=== PATIENT | female | born 1960 | race Caucasian/White ===

== ENCOUNTER 2021-02-13 16:03 | Outpatient (REF) | payer MEDICAID, SELFPAY ==
[2021-02-13 13:28] LABS: ESR 12 mm/hr (0-30)
[2021-02-13 13:43] LABS: ALT 26 U/L (14-59); AST 16 U/L (15-37); Albumin 3.8 g/dL (3.4-5.0); Alkaline Phosphatase 97 U/L (46-116); Anion Gap 8.9 mmol/L (3-11); BUN 24 mg/dL (7-18); Bilirubin, Total 0.3 mg/dL (0.2-1.0); CO2 27.1 mmol/L (21.0-32.0); CREATININE 0.7 mg/dL (0.55-1.02); Calcium 9.2 mg/dL (8.5-10.1); Calculated LDL 155 mg/dL (<100); Chloride 106 mmol/L (98-107); Cholesterol 226 mg/dL (<200); Glucose 100 mg/dL (74-106); HDL Cholesterol 57 mg/dL (40-60); Potassium 4.4 mmol/L (3.5-5.1); Sodium 142 mmol/L (136-145); Total Protein 6.9 g/dL (6.4-8.2); Triglyceride 70 mg/dL (<150)
[2021-02-13 13:56] LABS: C-Reactive Protein 0.05 mg/dL (0.0-0.3)
[2021-02-13 21:26] LABS: Rheumatoid Factor <8.6 IU/mL (<12.0)
== END 2021-02-13 16:04 | disposition home or self-care (01) ==
LOC: NCHCN 16:03
PROVIDERS: PCP Family Medicine; Visit Provider Nurse Practitioner
DX: M25.59 Pain in other specified joint; Z13.220 Encounter for screening for lipoid disorders
CPT/HCPCS: 80053; 80061; 85652; 86140; 86431

== ENCOUNTER 2022-06-17 02:22 | Outpatient (CLI) | payer MEDICAID, SELFPAY ==
[2022-06-17 08:52] LABS: Abs Immature Grans 0.01 10^3/uL (0.0-0.06); Absolute Basophil Count 0.02 10^3/uL (0.0-0.2); Absolute Eosinophil Count 0.22 10^3/uL (0.0-0.7); Absolute Lymphocyte Count 1.73 10^3/uL (1.2-3.4); Absolute Monocyte Count 0.58 10^3/uL (0.1-0.8); Absolute Neutrophil Count 3.31 10^3/uL (1.2-6.7); Basophils % 0.3; Eosinophils % 3.7; HCT 42.7 % (36.0-46.0); HGB 13.4 g/dL (11.2-15.7); Immature Grans % 0.2; Lymphocytes % 29.5; MCH 24.9 pg (27.0-33.0); MCHC 31.4 % (32.0-36.0); MCV 79 fL (80-95); MPV 11.7 fL (8.0-11.0); Monocytes % 9.9; Neutrophils % 56.4; Platelet Count 257 10^3/uL (130-400); RBC 5.39 10^6/uL (3.93-5.22); RDW 14.4 % (11.7-14.6); RDW-SD 41.4 fL; WBC 5.87 10^3/uL (4.4-10.8)
[2022-06-17 11:33] LABS: Source Nasal/Nares
[2022-06-17 14:25] LABS: COVID-19 PCR Negative (Negative)
== END 2022-06-17 02:23 | disposition home or self-care (01) ==
LOC: LBO 02:22
PROVIDERS: PCP Family Medicine; Visit Provider Obstetrics & Gynecology
DX: Z01.818 Encounter for other preprocedural examination (principal); Z20.822 Contact with and (suspected) exposure to COVID-19
CPT/HCPCS: 36415; 86850; 86900; 86901; 87635; 85025

== ENCOUNTER 2022-06-18 15:17 | Observation (INO) | payer MEDICAID, SELFPAY ==
[2022-06-18] VITALS (15 sets, daily range): BP systolic 79–130; BP diastolic 47–78; PULSE 53–70; RESP 11–18; TEMP 35.9–36.7; O2SAT 98–100; BMI 22.8
--- NOTE | 2022-06-18 06:26 | W.PM.OP ---
Date of service: 06/18/22 Time of Service: 12:46 Operative Note Operative Note DATE OF PROCEDURE: 06/18/22 PRE-OP DIAGNOSIS: left inguinal hernia POST-OP DIAGNOSIS: same PROCEDURE: Left inguinal hernia repair with mesh SURGEON: Zeny Harvey Refer to Anesthesia Record ESTIMATED BLOOD LOSS: 5 PATHOLOGY: none sent COMPLICATIONS: None Patient was transported to: PACU Patient's condition: stable Indications: Ms Patterson is a pleasant 62-year-old female with a left inguinal hernia on exam.? [facility] and would like to coordinate both surgeries.? I discussed the surgery in detail with her using a pamphlet with pictures.? Risks, benefits and complications have been reviewed.? Risks, benefits and complications have been reviewed. Complications include but are not limited to bleeding, infection, injury to vessels and nerves, injury to bowel and adverse reaction to medications. Questions were entertained and answered to their satisfaction and they wished to proceed. Findings: indirect hernia Procedure Description: After informed concent was obtained the patient was taken to the operating room. Monitors and SCDs were applied and a timeout was done. Dr. Kim went ahead and did her surgery first. Once Dr. Kim was done with her surgery the drapes were removed and the patient's legs were removed from the stirrups and placed on the Operating table. The patient's name, date of , procedure type, procedure site, allergies to medications, preoperative antibiotic, and DVT prophylaxis were all reviewed. Fire risk was assessed. Next anesthesia did a tap block on the left side under ultrasound guidance. Please see their separate dictation. Once anesthesia was done the abdomen was prepped and draped in a sterile surgical fashion. 0.25% Bupivocaine was injected into the dermis in the left lower quadrant. An incision was made with a 10 blade in the left lower quadrant. Dissection was done with cautery through the subcutaneous tissues and Leidy's fascia down to the external oblique fascia. The external ring was identified and the external oblique fascia was opened sharply through the external ring. The cut fascia was grasped with hemostats the cord structures were identified and a [place] drain was placed around them. The ilioinguinal nerve was identified and cut. The cremasteric muscle was dissected away from the round ligament using both cautery and blunt dissection. A hernia sac was identified and removed from the round ligament using blunt dissection. The hernia sac was suture ligated and amputated. The remnant was pushed back into the peritoneum. A flat piece of mesh was then attached to the lacunar ligament using a 2-0 Prolene double armed suture. The mesh was secured laterally and medially with a 2-0 Prolene, with a running suture. The tails of the mesh were wrapped around theround ligament effectively cinching down the internal ring. Once the mesh was secured the tissues were irrigated with some normal saline. No bleeding was identified. The external oblique fascia was re-approximated using 2-0 Vicryl running suture. The Leidy's fascia was reapproximated using interrupted 3-0 Vicryl. The dermis was reapproximated with a running 4-0 Vicryl. The skin was cleaned and dried and skin affix was applied. The patient was woken up and taken back to recovery in stable condition. There were no immediate complications. Sponge, instrument and needle counts were correct at the end of the case x2.
--- NOTE | 2022-06-18 06:28 | W.PM.DSUDISC ---
Date of service: 06/18/22 Time of Service: 12:44 Discharge Plan Disposition Patient Disposition: HOME Condition: Good Discharge Details Reason For Visit: left inguinal hernia repair Attending Provider: Precious Kim Primary Care Provider: Devan Jacinto Home Meds and New Rx's Prescriptions: Continued diclofenac sodium [Voltaren Arthritis Pain] 1 % gel 2 g topical QID PRN Rx Instructions: apply to single elbow, wrist or hand; for hand includes palm/fingers/back of hand sulfasalazine 500 mg tablet,delayed release (DR/EC) 0.5 g PO BID ascorbic acid (vitamin C) 500 mg capsule 500 mg PO DAILY multivitamin [Daily Multi-Vitamin] 1 EACH tablet 1 ea PO DAILY cyanocobalamin (vitamin B-12) 1,000 MCG tablet 1,000 mcg PO DAILY Discharge Instructions Additional Instructions: Activity at Home after surgery: 1. Make sure you walk outside at least 4 times per day 2. You should be able to climb a flight of stairs 3. No driving while in pain or taking pain medications 4. No strenuous activity or heavy lifting (no lifting >5-10 lb) for 4 weeks (open surgery) Diet, Nutrition, & wound healin. Avoid alcohol until after you are recovered from your surgery 2. Make sure to eat plenty of lean protein (meat, fish, eggs, cottage cheese, beans) 3. Eat a variety of fruits and vegetables. Eat plenty of high fiber foods to avoid constipation. 4. Drink plenty of liquids to stay hydrated and avoid constipation Pain Medications: 1. Tylenol 650mg every 6 hours as needed and Ibuprofen 600 mg every 6 hours as needed. You may alternate between the 2 medications every 3 hours 2. If a narcotic has been prescribed take as directed only for breakthrough pain For Constipation: 1. Take Milk of Magnesia or MiraLax as needed for constipation Other: 1. You may shower daily. Do not scrub the incisions 2. Do not soak the incisions for 1 week 3. You may alternate ice and heat as needed for pain and swelling Wound Care: 1. Keep the incisions clean and dry Please call our office if you develop: 1. Fevers >101.5 2. Nausea or Vomiting 3. Worsening pain 4. Redness and thick discharge from the wounds If after hours please call the Hospital at and ask to speak to the on-call surgeon Nothing in the vagina other then premarin until after 1mo post-op visit. Referrals: Zeny Harvey MD [ [facility] STAFF PHYSICIAN] - 07/04/22 8:30 am Activity:: as above Shower/Bathe:: 24 hours Diet:: As Tolerated Discharge Orders Discharge Orders: Discharge Order (Routine); Ordered 06/18/22 Ordered By: Zeny Harvey
[2022-06-18] MEDS: Acetaminophen 500 MG TAB 1000 MG PO (07:59)
[2022-06-18] MEDS: Gabapentin 300 MG CAP 600 MG PO (08:00)
[2022-06-18] MEDS: Celecoxib 200 MG CAP PO (08:00)
--- NOTE | 2022-06-18 08:01 | W.ANESPRE ---
General Info Date of Service Date Performed: 06/18/22 Height: 5 ft 2 in Weight: 56.7 kg Body Mass Index (BMI): 22.8 Surgical Procedure: Operation Date: 06/18/22 09:10 Proposed Procedure Side Surgeon p Anterior/Posterior Vaginal Repair Precious Kim MD s Herniorrhaphy Inguinal w/Mesh Left Zeny Harvey MD Meds Allergies and Home Medications Allergies Allergy/AdvReac Type Severity Reaction Status Date / Time wool Allergy Intermediate Skin Rash Verified 06/18/22 07:27 Penicillins Allergy Mild RASH Verified 06/18/22 07:27 Home Medication Medication Instructions Recorded multivitamin (Daily Multi-Vitamin 1 ea PO DAILY 10/15/15 tablet) cyanocobalamin (vitamin B-12) 1,000 mcg PO DAILY 10/22/15 1,000 mcg tablet ascorbic acid (vitamin C) 500 mg 500 mg PO DAILY 03/13/22 capsule sulfasalazine 500 mg 0.5 g PO BID 03/13/22 tablet,delayed release diclofenac sodium 1 % topical gel 2 g topical QID PRN 05/15/22 (Voltaren Arthritis Pain) Current Visit Medications: Current Medications Generic Name Dose Route Start Last Admin Trade Name Freq PRN Reason Stop Dose Admin Acetaminophen 1,000 mg 06/18/22 06:00 06/18/22 07:59 Acetaminophen 500 Mg Tab PO 06/18/22 16:00 1,000 mg PREOP LILIA Administration Celecoxib 200 mg 06/18/22 06:00 06/18/22 08:00 Celecoxib 200 Mg Cap PO 06/18/22 16:00 200 mg PREOP LILIA Administration Gabapentin 600 mg 06/18/22 06:00 06/18/22 08:00 Gabapentin 300 Mg Cap PO 06/18/22 16:00 600 mg PREOP LILIA Administration Ringer's Solution 1,000 mls @ 125 mls/hr 06/18/22 06:00 IV 07/17/22 23:59 INFUSION LILIA Cefazolin Sodium/Dextrose 2 gm in 50 mls @ 100 mls/hr 06/18/22 06:00 Ancef Duplex IVPB 06/18/22 16:00 PREOP LILIA Ondansetron HCl 4 mg/ Sodium 52 mls @ 200 mls/hr 06/18/22 06:34 Chloride IVPB Q6H PRN PRN IV Miscellaneous Supplies 1 each 06/18/22 06:00 Iv Access IV 07/17/22 23:59 DIRECTED LILIA Sodium Chloride 0 ml 06/18/22 06:00 Normal Saline Flush 10 Ml Syr IV 07/17/22 23:59 PRN PRN Sodium Chloride 0 ml 06/18/22 06:00 Normal Saline 10 Ml Vial IJ 07/17/22 23:59 DIRECTED PRN Sterile Water 0 ml 06/18/22 06:00 Water,Injection,Sterile 10 Ml Vial IJ 07/17/22 23:59 DIRECTED PRN Tramadol HCl 50 mg 06/18/22 06:34 Tramadol 50 Mg Tab PO Q6H PRN PRN Pain PFSH Active Problems Active Problems: Problem Status Onset Code Cystocele with rectocele N81.10, N81.6 Left groin mass R19.09 Urinary, incontinence, stress female N39.3 Surgical History Surgical History Appendectomy Vaginal hysterectomy [address] Oneil Tobacco Smoking/Tobacco Use Status: Former Tobacco Use Alcohol Alcohol Intake: current Alcohol intake frequency: a few times a month Substance Use Substance use: Never Substance use type: does not use Prental History History 7 Para Hx # Term Pregnancies 5 Multiple births Hx # Pregnancies Ectopic pregnancies AB induced Hx Number of Living Children AB spontaneous 2 Vital Signs and Lab Results Vital Signs Most Recent Vital Signs in EMR: Most Recent Vital Signs Temp Pulse Resp BP Pulse Ox 36.7 C 70 16 130/78 100 06/18/22 07:29 06/18/22 07:29 06/18/22 07:29 06/18/22 07:29 06/18/22 07:29 Lab Results Blood Type / Crossmatch: Patient ABO/Rh O Negative 06/17/22 Antibody Screen NEGATIVE 06/17/22 Complete Blood Count: White Blood Count 5.87 10^3/uL (4.4-10.8) 06/17/22 08:33 Red Blood Count 5.39 10^6/uL (3.93-5.22) H 06/17/22 08:33 Hemoglobin 13.4 g/dL (11.2-15.7) 06/17/22 08:33 Hematocrit 42.7 % (36.0-46.0) 06/17/22 08:33 Platelet Count 257 10^3/uL (130-400) 06/17/22 08:33 Complete Metabolic Panel: No Data to Display Liver Function Panel: No Data to Display Coagulation Panel: No Data to Display Cardiac Panel: No Data to Display Arterial Blood Gas: No Data to Display Venous Blood Gas: No Data to Display Pancreas Panel: No Data to Display Thyroid Panel: No Data to Display Infectious Disease: Coronavirus (COVID-19)(PCR) Negative (Negative) 06/17/22 08:30 Coronavirus 2019 Source Nasal/Nares 06/17/22 08:30 Blood Cultures: No Data to Display Toxicology Panel: No Data to Display Anesthesia Assessment and Plan Anesthesia History Personal History: No History of Anesthesia Complications Family History: No Family History of Anesthesia Complications Exercise Tolerance Exercise Tolerance: Metabolic Equivalents>4 Pertinent Negatives Pertinent Negatives: No Symptoms of GERD, No Major Cardiovascular Symptoms or Complaints, No Major Pulmonary Symptoms or Complaints and No History of CVA/TIA Cardiac & Pulmonary Exam Cardiac Exam: Normal S1/S2 Heart Sounds Pulmonary Exam: Clear Bilateral Breath Sounds Implantable Cardiac Device Does patient have a Pacemaker or an ICD?: No Airway Exam Known Difficult Airway: No Mallampati Class: 2 Mouth Opening: Normal (> 3cm) Thyromental Distance: Greater than 3 cm Neck Range of Motion: Full ROM Neck Circumference: Normal Teeth Condition: Loose or Chipped Tooth Numberin. Fragile crowns, patient aware of risk of dislodgment. ASA Classification ASA Score: ASA 2 Emergency Case?: No NPO Status NPO Status: NPO Clears >2 hours, Solids >8 hours Anesthesia Plan Resuscitation Status: Full Code Anesthesia Technique: General Anesthesia Airway Planned: Endotracheal Tube Monitors Used: Standard Monitors
[2022-06-18] MEDS: Lactated Ringers 1,000 ML 125 ML IV (08:02)
[2022-06-18] MEDS: ceFAZolin 2 GM/50 ML BAG IVPB (09:44)
[2022-06-18] MEDS: Bupivacaine 0.5% Pres-Free W/EPI 30 ML VIAL (10:00)
[2022-06-18] MEDS: Normal Saline 20 ML VIAL (10:00)
--- NOTE | 2022-06-18 10:04 | W.ANESNERVE ---
Nerve Block Single Injection Procedure Date and Time Date Performed: 06/18/22 Procedure Start: 11:16 Location Where Procedure Performed Procedure Location: Operating Room Procedure Stop: 11:21 Reason Performed: Postoperative Analgesia Requesting Provider: Zeny Harvey Timeout Performed Timeout Performed: Yes Monitoring Used ECG, Blood Pressure, SpO2, ETCO2 and See EMR for corresponding vital signs Sterility Sterility: Hand Hygiene, Surgical Cap, Surgical Mask, Sterile Gloves, Sterile Drape/Sheet and Chlorhexidine Sedation Given During Procedure Sedation Given (Indicate Dose Given): No Sedation given Patient Mental Status Patient Mental Status: Performed under general anesthesia Nerve Block 1st Nerve Block: Laterality: Left Block Type: TAP Unilateral Needle / Catheter Used: 100mm SonoPlex II Local Anesthetic Bolus (Indicate Dose Given): Injected in 3-5ml increments after negative blood aspiration and Bupivacaine 0.25% Dose:: 25 ml Additives (Indicate Dose Given): Precedex Dose:: 50 mcg Ultrasound: Sterile probe cover and gel used Ultrasound Image Saved?: Yes Nerve Stimulator: Not Used Paresthesia: None Procedure Tolerated: No Complications and Patient tolerated well Procedure Outcome: Successful Performed By: Jessica Holloway
[2022-06-18] MEDS: Bupivacaine 0.25% Pres-Free 30 ML VIAL (10:19)
--- NOTE | 2022-06-18 11:33 | W.PM.OP ---
Date of service: 06/18/22 Time of Service: 09:45 Operative Note Operative Note DATE OF PROCEDURE: 06/18/22 PRE-OP DIAGNOSIS: Cystocele, rectocele POST-OP DIAGNOSIS: same (enterocele) enterocele PROCEDURE: Anterior posterior vaginal repair SURGEON: Precious Kim ASSISTING SURGEON: Amy Neal Refer to Anesthesia Record ESTIMATED BLOOD LOSS: 150 Patient was transported to: PACU Patient's condition: stable Indications: Symptomatic cystocele and rectocele Findings: Grade 3 cystolcele, grade 2 rectocele, grade 2 enterocele Procedure Description: After informed consent was signed the patient was taken to the operating room and given general anesthesia. SCDs were placed on her legs. She was prepped and draped in the dorsal lithotomy position in the [facility]. A donnelly catheter was introduced into her bladder. A time out was performed. First attention was turned to the rectocele. Dilute vasopressin was infiltrated under the midline posterior vaginal mucosa. An inverted triangle was cut in the perineum. The robbins scissors were used to cut open the posterior vaginal wall vertically along the midline to the apex of the rectocele just below the vaginal cuff. The cut edges were splayed and held laterally with allis clamps as the vaginal mucosa was dissected laterally with a combination of sharp dissection with the metzenbaum scissors and blunt dissection. The perirectal fascia was then reapproximated with interrupted sutures of 3-0 vicryl. The perineal body was closed with 1 interrupted suture. The excess vaginal mucosa was trimmed and then closed with a running locked suture of 3-0 vicryl. Next attention was turned to the cystocele. Dilute vasopression was infiltrated unter the anterior vaginal mucosa. An incision was made in the mucosa and the metzenbaum scissors were used to cut a midline incision and dissect the mucosa off from the cystocele. The edges of the mucosa were splayed laterally and held with allis clamps. The bladder was further dissected away from the lateral edges with a combination of sharp and blunt dissection. The fascia was then reapproximated with interrupted [id number] sutures of 3-0 vicryl to support the bladder. The excess vaginal mucosa was trimmed and closed with a running locked suture. There was good hemostasis. The vagina was packed with premarin coated vaginal packing. All sponge, lap, needle and instrument counts were corrects. The patient was placed back into the supine position. She was moved to the stretcher and taken to the recovery room in stable condition.
--- NOTE | 2022-06-18 11:39 | PDOC.DSDIS_ITS ---
Date of service: 06/18/22 Time of Service: 11:39 Discharge Plan Disposition Patient Disposition: HOME Condition: Good Discharge Details Reason For Visit: left inguinal hernia repair Attending Provider: Precious Kim Primary Care Provider: Devan Jacinto Home Meds and New Rx's Prescriptions: No Action diclofenac sodium [Voltaren Arthritis Pain] 1 % gel 2 g topical QID PRN Rx Instructions: apply to single elbow, wrist or hand; for hand includes palm/fingers/back of hand sulfasalazine 500 mg tablet,delayed release (DR/EC) 0.5 g PO BID ascorbic acid (vitamin C) 500 mg capsule 500 mg PO DAILY multivitamin [Daily Multi-Vitamin] 1 EACH tablet 1 ea PO DAILY cyanocobalamin (vitamin B-12) 1,000 MCG tablet 1,000 mcg PO DAILY Discharge Instructions Additional Instructions: Activity at Home after surgery: 1. Make sure you walk outside at least 4 times per day 2. You should be able to climb a flight of stairs 3. No driving while in pain or taking pain medications 4. No strenuous activity or heavy lifting (no lifting >5-10 lb) for 4 weeks (open surgery) Diet, Nutrition, & wound healin. Avoid alcohol until after you are recovered from your surgery 2. Make sure to eat plenty of lean protein (meat, fish, eggs, cottage cheese, beans) 3. Eat a variety of fruits and vegetables. Eat plenty of high fiber foods to avoid constipation. 4. Drink plenty of liquids to stay hydrated and avoid constipation Pain Medications: 1. Tylenol 650mg every 6 hours as needed and Ibuprofen 600 mg every 6 hours as needed. You may alternate between the 2 medications every 3 hours 2. If a narcotic has been prescribed take as directed only for breakthrough pain For Constipation: 1. Take Milk of Magnesia or MiraLax as needed for constipation Other: 1. You may shower daily. Do not scrub the incisions 2. Do not soak the incisions for 1 week 3. You may alternate ice and heat as needed for pain and swelling Wound Care: 1. Keep the incisions clean and dry Please call our office if you develop: 1. Fevers >101.5 2. Nausea or Vomiting 3. Worsening pain 4. Redness and thick discharge from the wounds If after hours please call the Hospital at and ask to speak to the on-call surgeon Nothing in the vagina other then premarin until after 1mo post-op visit. Referrals: Zeny Harvey MD [ [facility] STAFF PHYSICIAN] - 07/04/22 8:30 am Activity:: as above Shower/Bathe:: 24 hours Diet:: As Tolerated Discharge Orders Discharge Orders: Discharge Order (Routine); Ordered 06/18/22 Ordered By: Zeny Harvey
--- NOTE | 2022-06-18 14:21 | W.ANESPOSTOP ---
Postoperative Evaluation Date, Time and Location Date Performed: 06/18/22 Time Performed: 14:22 Patient Location: Day Surgery Unit Vital Signs Most Recent Imported Vital Signs: Most Recent Vital Signs Temp Pulse Resp BP Pulse Ox 36.0 C L 57 L 18 98/66 L 98 06/18/22 13:55 06/18/22 13:55 06/18/22 13:55 06/18/22 13:55 06/18/22 13:55 Pain Score Most Recent Pain Score: Most Recent Pain Score Pain Level 0 06/18/22 13:55 Assessment Mental Status: Awake (Alert & Oriented to Patient Baseline) Airway and Respiratory Function: Patent airway with normal (patient baseline) respiratory exam Cardiovascular Function: Hemodynamically Stable Hydration Status: Adequately Hydrated Nausea & Vomiting: No Nausea or Vomiting Pain: Pt. Denies Any Pain Peripheral Nerve Block: Patient did not receive a nerve block Postoperative Comments:: States vision is still blurry. Denies tearing or pain. Discussed that this should pass with time.
--- NOTE | 2022-06-18 15:56 | NUR.NOTE ---
Dr. Kim in to remove vaginal packing. New packing replaced, Slated for admit over night for observation. Complains of abdominal cramping and urinary urgency. Assisted to BR but did not void. Cramping much improved after returning to bed. Report called to [facility] in OB. Transfer to OB pending results of COVID test. Nursing Note:
[2022-06-18 16:04] LABS: Source Nasal/Nares
[2022-06-18 16:38] LABS: COVID-19 PCR Negative (Negative)
[2022-06-18] MEDS: Ibuprofen 600 MG TAB PO ×2 (17:01→20:48)
[2022-06-19 00:04] VITALS: BP 93/58; PULSE 88; RESP 18; TEMP 36.7
[2022-06-19 04:15] VITALS: BP 98/56; PULSE 79; RESP 18; TEMP 36.7
[2022-06-19] MEDS: Acetaminophen 325 MG TAB 650 MG PO (04:50)
[2022-06-19] MEDS: Ibuprofen 600 MG TAB PO (08:18)
[2022-06-19] MEDS: traMADol 50 MG TAB PO (09:34)
--- NOTE | 2022-06-19 10:37 | NUR.NOTE ---
pt reports she still feels like her equilibrium is off, almost like a vertigo feel that she has had since surgery. RN called MD Kim who was in with another patient but will inform her when she is free. Nursing Note:
--- NOTE | 2022-06-19 11:03 | W.PM.DSUDISC ---
Date of service: 06/19/22 Time of Service: 11:04 Discharge Plan Disposition Patient Disposition: HOME Condition: Good Discharge Details Reason For Visit: Cystocele Admit Date/Time: 06/18/22 15:17 Admit Provider: Precious Kim Attending Provider: Precious Kim Primary Care Provider: Devan Jacinto wali Hospital Course Hospital Course: Pt underwent scheduled APR and inguinal hernia repair. She was kept overnight due to a small amount of bleeding when the vaginal packing was removed. It was replaced and when she was unable to urinate a donnelly catheter was put back in overnight. Both were removed in the am and she was discharge after being able to urinate. Home Meds and New Rx's Prescriptions: New acetaminophen 325 mg Tablet 650 mg PO Q4H PRN PRN (Reason: Pain) Qty: 60 0RF ibuprofen 600 mg Tablet 600 mg PO Q6H Qty: 60 0RF Continued diclofenac sodium [Voltaren Arthritis Pain] 1 % gel 2 g topical QID PRN Rx Instructions: apply to single elbow, wrist or hand; for hand includes palm/fingers/back of hand sulfasalazine 500 mg tablet,delayed release (DR/EC) 0.5 g PO BID ascorbic acid (vitamin C) 500 mg capsule 500 mg PO DAILY multivitamin [Daily Multi-Vitamin] 1 EACH tablet 1 ea PO DAILY cyanocobalamin (vitamin B-12) 1,000 MCG tablet 1,000 mcg PO DAILY Discharge Instructions Additional Instructions: Activity at Home after surgery: 1. Make sure you walk outside at least 4 times per day 2. You should be able to climb a flight of stairs 3. No driving while in pain or taking pain medications 4. No strenuous activity or heavy lifting (no lifting >5-10 lb) for 4 weeks (open surgery) Diet, Nutrition, & wound healin. Avoid alcohol until after you are recovered from your surgery 2. Make sure to eat plenty of lean protein (meat, fish, eggs, cottage cheese, beans) 3. Eat a variety of fruits and vegetables. Eat plenty of high fiber foods to avoid constipation. 4. Drink plenty of liquids to stay hydrated and avoid constipation Pain Medications: 1. Tylenol 650mg every 6 hours as needed and Ibuprofen 600 mg every 6 hours as needed. You may alternate between the 2 medications every 3 hours 2. If a narcotic has been prescribed take as directed only for breakthrough pain For Constipation: 1. Take Milk of Magnesia or MiraLax as needed for constipation Other: 1. You may shower daily. Do not scrub the incisions 2. Do not soak the incisions for 1 week 3. You may alternate ice and heat as needed for pain and swelling Wound Care: 1. Keep the incisions clean and dry Please call our office if you develop: 1. Fevers >101.5 2. Nausea or Vomiting 3. Worsening pain 4. Redness and thick discharge from the wounds If after hours please call the Hospital at and ask to speak to the on-call surgeon Nothing in the vagina other then premarin until after 1mo post-op visit. Stand Alone Forms: Anesthesia Discharge Inst., DSU Post CRACKING STILL OPERATOR Surgery, Juma Reyes (DSU) Referrals: Zeny Harvey MD [ [facility] STAFF PHYSICIAN] - 07/04/22 8:30 am Activity:: Activity as Tolerated Equipment/Supplies:: No Equipment Needed Diet:: As Tolerated Discharge Orders Discharge Orders: Discharge Order (Routine); Ordered 06/18/22 Ordered By: Zeny Harvey
== END 2022-06-19 11:26 | disposition home or self-care (01) ==
LOC: OBS 17:23
PROVIDERS: Surgery; Admitting Provider Obstetrics & Gynecology; PCP Family Medicine; Visit Provider Obstetrics & Gynecology
PROC: 0UQF0ZZ Repair Cul-de-sac, Open Approach (ICD-10-PCS; CPT 57260; principal; 2022-06-18 09:00)
PROC: (CPT 49505; 2022-06-18 09:00)
DX: K40.90 Unilateral inguinal hernia, without obstruction or gangrene, not specified as recurrent (principal); N81.10 Cystocele, unspecified; N81.6 Rectocele; N39.3 Stress incontinence (female) (male); N81.5 Vaginal enterocele
CPT/HCPCS: 57265; 49505; 76942; 87635; 96361; 96365; C1781; J0690; J1100; J1885; J2405; J2704

== ENCOUNTER 2022-08-01 12:13 | Outpatient (REF) | payer MEDICAID, SELFPAY | END 2022-08-01 12:14 | disposition home or self-care (01) | LOC: LBN 12:13 | PROVIDERS: PCP Family Medicine; Visit Provider Obstetrics & Gynecology | DX: R30.0 Dysuria (principal) | CPT/HCPCS: 87077; 87086; 87186 ==